=== PATIENT | male | born 1945 | race Caucasian/White ===

== ENCOUNTER 2016-09-22 21:03 | Emergency (ER) | payer OTHER ==
[~2016-09-22] VITALS: Ht 180.3 cm; Wt 85.3 kg
[~2016-09-22 21:03] MED LIST: AMOX TR-K CLV1 EAC4 PO; LEVAQUIN750 MG PO; NEXIUM40 MG PO; TRICOR145 MG PO; VERTICALM25 MG PO; VYTORIN 10/21 TABLET PO
[2016-09-22 21:51] LABS: BASOPHIL COUNT 0.1 K/uL (0-0.1); EOSINOPHIL (%) 1.5 % (0-5); EOSINOPHIL COUNT 0.1 K/uL (0-0.3); HEMATOCRIT 52.4 % (38.0-50.0); IMMATURE GRANULOCYTE (%) 1.4 % (0.0-0.7); IMMATURE GRANULOCYTE COUNT 0.1 K/uL; INSTRUMENT ABS NEUTROPHIL CT 5.8 K/uL; LYMPHOCYTE COUNT 1.9 K/uL (1.0-2.8); MCH 25.5 PG (29.0-34.0); MCHC 32.3 G/DL (30.0-36.0); MCV 79.2 FL (86-99); MEAN PLAT.VOLUME 9.3 uM^3 (9.0-12.4); MONOCYTE (%) 7.2 % (3-12); MONOCYTE COUNT 0.6 K/uL (0-0.8); NEUTROPHIL (%) 67.6 % (45-76); NEUTROPHIL COUNT 5.8 K/uL (1.8-6.4); PLATELET COUNT 227 K/uL (156-360); RBC DIS.WIDTH-CV 14.4 % (11.8-14.6); RBC DIS.WIDTH-SD 39.9 % (39-53); RED BLOOD COUNT 6.62 M/uL (4.00-5.50); WHITE BLOOD COUNT 8.6 K/uL (4.1-10.2)
[2016-09-22 21:58] LABS: PROTHROMBIN TIME 11.3 SEC (10.2-12.9)
[2016-09-22 22:01] LABS: PTT 36.9 SEC (25-37)
[2016-09-22 22:02] LABS: CHLORIDE 104 mEq/L (99-109); POTASSIUM 4.3 mEq/L (3.7-5.4); SODIUM 139 mEq/L (136-147)
[2016-09-22 22:04] LABS: GLUCOSE 146 mg/dL (70-99)
[2016-09-22 22:06] LABS: ANION GAP 11 MEQ/L (2-14); TOTAL BILIRUBIN 0.4 mg/dL (0.0-1.0)
[2016-09-22 22:08] LABS: ALKALINE PHOSPHATASE 82 IU/L (3-129); GFR ESTIMATE (CALCULATED) 58 mL/min/
[2016-09-22 22:09] LABS: UREA NITROGEN (BUN) 15 mg/dL (9-23)
[2016-09-22 22:11] LABS: LIPASE 14 U/L (1.0-51.0)
[2016-09-22 22:12] LABS: TROP-I INTERPRETATION NEGATIVE; TROPONIN-I < 0.01 ng/mL (0.0-0.30)
[2016-09-22] MEDS ORDERED: ZOFRAN4 MG PO (23:42)
[2016-09-22] MEDS ORDERED: ANTIVERT25 MG PO (23:42)
[2016-09-23 00:30] VITALS: BP 145/93
== END 2016-09-23 00:33 | disposition home or self-care (01) ==
LOC: EME → EDBD 21:03 → EME 21:03
PROVIDERS: Emergency Medicine
DX: R42 Dizziness and giddiness (principal); I10 Essential (primary) hypertension; E78.5 Hyperlipidemia, unspecified; I49.3 Ventricular premature depolarization
CPT/HCPCS: 70450; 80053; 83690; 84484; 85025; 85610; 85730; 93005; 99281; 99284; J2405; J7030